=== PATIENT | female | born 1980 | race Caucasian/White ===

== ENCOUNTER 2017-06-25 10:55 | Outpatient (CLI) | payer MEDICAID ==
[~2017-06-25] VITALS: Ht 158.8 cm; Wt 78.1 kg
[~2017-06-25 10:55] MED LIST: IBUP-1222 PO; OXYC-302 PO; PREN1TAB27 PO
[2017-06-25 11:00] VITALS: BP 109/71
== END 2017-06-25 14:05 | disposition home or self-care (01) ==
LOC: LDOP 10:55
PROVIDERS: ATTEND Obstetrics & Gynecology
DX: O62.9 Abnormality of forces of labor, unspecified (principal); Z3A.38 38 weeks gestation of pregnancy
CPT/HCPCS: 59025; 99201; G0463

== ENCOUNTER 2017-06-26 04:40 | Inpatient (IN) | payer MEDICAID ==
[~2017-06-26] VITALS: Ht 157.5 cm; Wt 77.3 kg
[2017-06-26] MEDS ORDERED: LACTATED RINGERS 1,000 ML IV SCH ×3 (04:43→07:53)
[2017-06-26] MEDS ORDERED: OXYTOCIN 30U/ 0.9% NaCL 500ML 500 ML IV SCH ×2 (04:43→07:53)
[2017-06-26] MEDS ORDERED: METOCLOPRAMIDE 5 MG/ML, 2ML ONE (04:52)
[2017-06-26] MEDS ORDERED: NEWBORN KIT ONE (04:52)
[2017-06-26] MEDS ORDERED: SODIUM CITRATE/CITRIC ACID 30 ML UDC ONE (04:52)
[2017-06-26] MEDS ORDERED: OXYTOCIN 30U/ 0.9% NaCL 500ML 500 ML ONE (04:52)
[2017-06-26] MEDS ORDERED: METOCLOPRAMIDE 5 MG/ML, 2ML IV ONE (05:00)
[2017-06-26] MEDS ORDERED: SODIUM CITRATE/CITRIC ACID 30 ML UDC PO ONE (05:00)
[2017-06-26] MEDS ORDERED: ONDANSETRON 2MG/ML, 2ML IVPush ONE (05:00)
[2017-06-26] MEDS ORDERED: LACTATED RINGERS 1,000 ML IVBOLUS ONE (05:00)
[2017-06-26] MEDS ORDERED: CALCIUM CARBONATE 500 MG TAB.CHEW PO PRN ×2 (05:00→08:00)
[2017-06-26] MEDS ORDERED: EPHEDRINE 50 MG/ML, 1ML ONE (05:19)
[2017-06-26] MEDS ORDERED: DEXAMETHASONE 4 MG/ML, 1ML ONE (05:19)
[2017-06-26] MEDS ORDERED: OXYTOCIN 10 UNITS/ML, 1ML ONE (05:19)
[2017-06-26] MEDS ORDERED: CEFAZOLIN 1,000 MG ONE (05:19)
[2017-06-26] MEDS ORDERED: ONDANSETRON 2MG/ML, 2ML ONE (05:19)
[2017-06-26] MEDS ORDERED: FENTANYL PF 100 MCG/2ML ONE (05:19)
[2017-06-26] MEDS ORDERED: KETOROLAC 30 MG/1 ML ONE (05:19)
[2017-06-26] MEDS ORDERED: PHENYLEPHRINE 10 MG/ML ONE (05:19)
[2017-06-26 05:29] LABS: BASOPHILS # (AUTO) 0.02 x10^3/uL (0-0.1); BASOPHILS % (AUTO) 1 % (0-1); EOSINOPHILS # (AUTO) 0.02 x10^3/uL (0-0.4); EOSINOPHILS % (AUTO) 0 % (1-7); LYMPHOCYTES # (AUTO) 1.52 x10^3/uL (1-3.4); LYMPHOCYTES % (AUTO) 38 % (22-44); MD NO; MEAN CORPUSCULAR HEMOGLOBIN 33.7 pg (27.0-34.8); MEAN CORPUSCULAR HGB CONC 35.6 g/dL (32.4-35.8); MEAN CORPUSCULAR VOLUME 94.6 fL (80-100); MEAN PLATELET VOLUME 9.4 fL (7.4-10.4); MONOCYTES # (AUTO) 0.28 x10^3/uL (0.2-0.8); MONOCYTES % (AUTO) 7 % (2-9); NEUTROPHILS # (AUTO) 2.19 x10^3/uL (1.8-6.8); NEUTROPHILS % (AUTO) 54 % (42-75); PLATELET COUNT 183 x10^3/uL (130-400); RED BLOOD COUNT 3.89 x10^6/uL (3.82-5.3); RED CELL DISTRIBUTION WIDTH 14.8 % (9.6-15.2)
[2017-06-26] MEDS: PLEASE ENTER HEIGHT AND WEIGHT MC SCH ×3 (05:30→21:30)
[2017-06-26] MEDS ORDERED: OXYcodone 5 MG/5 ML ORAL.SOL UDC PO PRN (05:30)
[2017-06-26] MEDS ORDERED: HYDROmorphone 1 MG/ML, 1ML IV PRN (05:30)
[2017-06-26] MEDS ORDERED: PROMETHAZINE 25 MG/ML, 1ML IV PRN (05:30)
[2017-06-26] MEDS ORDERED: MEPERIDINE/PF 25MG/0.5ML IVPush PRN (05:30)
[2017-06-26] MEDS ORDERED: MIDAZOLAM 1 MG/ML, 2ML IV PRN (05:30)
[2017-06-26] MEDS ORDERED: EPHEDRINE 50 MG/ML, 1ML IVPush PRN (05:30)
[2017-06-26] MEDS ORDERED: hydrALAzine 20 MG/ML, 1ML IV PRN (05:30)
[2017-06-26] MEDS ORDERED: ALBUTEROL SULFATE 2.5 MG/3 ML NPPB PRN (05:30)
[2017-06-26] MEDS ORDERED: HYDROcodone/APAP 7.5-325MG/15ML UDC PO PRN (05:30)
[2017-06-26] MEDS ORDERED: FENTANYL PF 100 MCG/2ML IV PRN (05:30)
[2017-06-26] MEDS ORDERED: LABETALOL 5MG/ML, 20ML IV PRN (05:30)
[2017-06-26] MEDS ORDERED: ONDANSETRON 2MG/ML, 2ML IVPush PRN (05:30)
[2017-06-26] MEDS: LACTATED RINGERS 1,000 ML IV SCH ×3 (07:53→23:53)
[2017-06-26] MEDS ORDERED: SIMETHICONE 80 MG CHEW TAB PO PRN (08:00)
[2017-06-26] MEDS ORDERED: BISACODYL 10 MG SUPP PR PRN (08:00)
[2017-06-26] MEDS ORDERED: METHYLERGONOVINE 0.2 MG/ML IM PRN (08:00)
[2017-06-26] MEDS ORDERED: OXYcodone IR 5MG TABLET PO PRN (08:00)
[2017-06-26] MEDS ORDERED: morphine SULFATE 10 MG/ML, 1ML IVPush PRN ×2 (08:00)
[2017-06-26] MEDS ORDERED: ONDANSETRON 2MG/ML, 2ML IV PRN (08:00)
[2017-06-26] MEDS ORDERED: MISOPROSTOL 200 MCG TABLET PR PRN (08:00)
[2017-06-26 09:00] VITALS: BP 124/69
[2017-06-26] MEDS: PRENATAL VIT/IRON/FA 1 EACH TABLET PO SCH (09:00)
[2017-06-26] MEDS: ACETAMINOPHEN 325 MG TABLET PO SCH ×3 (10:36→23:08)
[2017-06-26] MEDS: OXYcodone IR 5MG TABLET PO PRN ×3 (10:37→21:02)
[2017-06-26 13:00] VITALS: BP 101/62
[2017-06-26] MEDS: KETOROLAC 30 MG/1 ML IV SCH ×2 (13:07→19:34)
[2017-06-26 16:40] VITALS: BP 99/61
[2017-06-26 16:56] LABS: BASOPHILS # (AUTO) 0.01 x10^3/uL (0-0.1); BASOPHILS % (AUTO) 0 % (0-1); EOSINOPHILS % (AUTO) 0 % (1-7); LYMPHOCYTES # (AUTO) 1.42 x10^3/uL (1-3.4); LYMPHOCYTES % (AUTO) 43 % (22-44); MD NO; MEAN CORPUSCULAR HEMOGLOBIN 32.6 pg (27.0-34.8); MEAN CORPUSCULAR HGB CONC 34.7 g/dL (32.4-35.8); MEAN CORPUSCULAR VOLUME 93.7 fL (80-100); MEAN PLATELET VOLUME 9.3 fL (7.4-10.4); MONOCYTES % (AUTO) 12 % (2-9); NEUTROPHILS % (AUTO) 45 % (42-75); PLATELET COUNT 173 x10^3/uL (130-400); RED BLOOD COUNT 3.79 x10^6/uL (3.82-5.3); RED CELL DISTRIBUTION WIDTH 14.6 % (9.6-15.2)
[2017-06-26 20:00] VITALS: BP 98/67
[2017-06-26] MEDS: DOCUSATE 100 MG CAPSULE PO PRN (21:02)
[2017-06-27 00:05] VITALS: BP 104/60
[2017-06-27] MEDS: OXYcodone IR 5MG TABLET PO PRN ×3 (01:49→14:00)
[2017-06-27] MEDS: KETOROLAC 30 MG/1 ML IV SCH ×2 (01:49→07:00)
[2017-06-27 05:00] VITALS: BP 100/60
[2017-06-27] MEDS: ACETAMINOPHEN 325 MG TABLET PO SCH ×4 (05:04→23:34)
[2017-06-27] MEDS: PLEASE ENTER HEIGHT AND WEIGHT MC SCH ×3 (05:30→21:30)
[2017-06-27 07:45] VITALS: BP 111/67
[2017-06-27] MEDS: LACTATED RINGERS 1,000 ML IV SCH ×3 (07:53→23:53)
[2017-06-27] MEDS: DOCUSATE 100 MG CAPSULE PO PRN ×2 (08:08→19:59)
[2017-06-27] MEDS: IBUPROFEN 600 MG TABLET PO SCH ×3 (08:08→19:59)
[2017-06-27] MEDS: PRENATAL VIT/IRON/FA 1 EACH TABLET PO SCH (08:08)
[2017-06-27 19:20] VITALS: BP 101/63
[2017-06-28] MEDS: IBUPROFEN 600 MG TABLET PO SCH ×3 (01:40→14:03)
[2017-06-28] MEDS: ACETAMINOPHEN 325 MG TABLET PO SCH ×2 (05:23→11:29)
[2017-06-28] MEDS: PLEASE ENTER HEIGHT AND WEIGHT MC SCH (05:30)
[2017-06-28] MEDS: PRENATAL VIT/IRON/FA 1 EACH TABLET PO SCH (07:30)
[2017-06-28] MEDS: DOCUSATE 100 MG CAPSULE PO PRN (07:30)
[2017-06-28] MEDS ORDERED: DOCU-131 PO (10:14)
== END 2017-06-28 20:06 | disposition home or self-care (01) | DRG 766 ==
LOC: LDOP 04:40 → LDIP 05:10 → 2NW 08:42
PROVIDERS: ADMIT Obstetrics & Gynecology; ATTEND Obstetrics & Gynecology
PROC: 10D00Z1 Extraction of Products of Conception, Low, Open Approach (ICD-10-PCS; principal; 2017-06-26)
DX: O34.211 Maternal care for low transverse scar from previous cesarean delivery (principal); O24.420 Gestational diabetes mellitus in childbirth, diet controlled; Z37.0 Single live birth; Z3A.38 38 weeks gestation of pregnancy
CPT/HCPCS: 36415; 82947; 85025; 86850; 86900; J0690; J1100; J1885; J2405; J3010; J2370; J2590; J2765; J7120